=== PATIENT | female | born 1935 | race Caucasian/White ===

== ENCOUNTER → 2016-08-02 | Outpatient (CLI) | payer MEDICARE ==
--- OUTSIDE RECORDS SUMMARY | 2016-08-02 09:52 | XMS REPORT | Clinical Summary ---
Author Author Admin, E Organization [facility] Address Unknown Phone Unavailable Allergies, Adverse Reactions, Alerts Allergy Name Reaction Description Start Date Severity Status Provider No Known Allergies Faby Kennedy LPN NKDA Critical Active Saad WALDEN Conditions or Problems Problem Name Problem Code Onset Date Status Entry Date Provider Comment Standard Description Annotate DIABETES, TYPE 1 250.01 Correction Lizzy STEEL Diabetes mellitus without mention of complication, type I [juvenile type], not stated as uncontrolled HYPERLIPIDEMIA 272.4 Active Shubham Sanchez DO Other and unspecified hyperlipidemia HYPERTENSION 401.9 Active Shubham Sanchez DO Unspecified essential hypertension HYPOTHYROIDISM 244.9 Resolved Sissyeh Nancyari HOME SUPERVISOR Unspecified hypothyroidism FH DIABETES V18.0 Resolved Malmelissaeh Alexei STEEL Family history of diabetes mellitus HEALTH SCREENING V70.0 Active Shubham Sanchez DO Routine general medical examination at a health care facility DIABETES MELLITUS, TYPE II, UNCONTROLLED 250.02 Resolved Saad WALDEN Diabetes mellitus without mention of complication, type II or unspecified type, uncontrolled CARPAL TUNNEL SYNDROME, BILATERAL 354.0 Resolved Lizzy NAVARROP Carpal tunnel syndrome SINUSITIS, ACUTE 461.9 Resolved Saad WALDEN Acute sinusitis, unspecified FASCIITIS, PLANTAR 728.71 Resolved Saad WALDEN Plantar fascial fibromatosis DIABETES MELLITUS, TYPE II, CONTROLLED 250.00 Resolved Saad WALDEN Diabetes mellitus without mention of complication, type II or unspecified type, not stated as uncontrolled DIABETES, TYPE 2 250.00 Resolved aSad WALDEN Diabetes mellitus without mention of complication, type II or unspecified type, not stated as uncontrolled ARTHRITIS 716.90 Active Shubham Sanchez DO Arthropathy, unspecified, site unspecified DIABETES MELLITUS, TYPE II, ON INSULIN 250.00 Resolved Sissyeh Martyglari HOME SUPERVISOR Diabetes mellitus without mention of complication, type II or unspecified type, not stated as uncontrolled DIABETIC PERIPHERAL NEUROPATHY 250.60 Active Saad WALDEN Diabetes mellitus with neurological manifestations, type II or unspecified type, not stated as uncontrolled 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 Resolved Maliheh Ziglari HOME SUPERVISOR Benign neoplasm of parathyroid gland URINARY TRACT INFECTION 599.0 Resolved Sissyeh Martyglari HOME SUPERVISOR Urinary tract infection, site not specified LONG-TERM (CURRENT) USE OF OTHER MEDICATIONS V58.69 Resolved Sissyeh Ziglari HOME SUPERVISOR Long-term (current) use of other medications PARATHYROIDECTOMY V45.79 Resolved Jelaniiheh Ziglari HOME SUPERVISOR Other acquired absence of organ HAND PAIN, RIGHT 729.5 Resolved Sissyeh Martyglari HOME SUPERVISOR Pain in limb VITAMIN D DEFICIENCY 268.9 Active Saad WALDEN Unspecified vitamin D deficiency PRIMARY HYPERPARATHYROIDISM 252.01 Active Saad WALDEN Primary hyperparathyroidism NEED PROPHYLACTIC VACCINATION&INOCULATION FLU V04.81 Resolved Lizzy Fergusonglari HOME SUPERVISOR Need for prophylactic vaccination and inoculation against influenza Hypocalcemia 275.41 Active Saad WALDEN Hypocalcemia Leg cramps 729.82 Active Saad WALDEN Cramp of limb Diabetes mellitus, type II, uncontrolled 250.02 Active Saad WALDEN Diabetes mellitus without mention of complication, type II or unspecified type, uncontrolled Elevated blood sugar 790.29 Resolved Sissyeh Martyglmat NAVARROP Other abnormal glucose Anemia 285.9 Active Guillermina Bay [employer] Anemia, unspecified 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 Kalpesh Che MD 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 Renal Mass 593.9 Active Bobbi Sandoval MD Unspecified disorder of kidney and ureter Long-term (current) use of other medications V58.69 Resolved Maliheh Ziglari HOME SUPERVISOR Long-term (current) use of other medications Kidney disease, chronic, stage III 585.3 Active Vanessa Cantu RMA Chronic kidney disease, Stage III (moderate) Aftercare following surgery of the teeth,oral cavity and digestive system, NEC V58.75 Resolved Maliheh Ziglari HOME SUPERVISOR Aftercare following surgery of the teeth,oral cavity and digestive system, NEC Renal 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 Active Bobbi Sandoval MD Malignant neoplasm of kidney, except pelvis Fatigue 780.79 Active Saad WALDEN Other malaise and fatigue Hypotension 458.9 Active Saad WALDEN Hypotension, unspecified Adenocarcinoma, colon 153.9 Active Saad WALDEN Malignant neoplasm of colon, unspecified Allergic rhinitis 477.9 Resolved Maliheh Ziglari HOME SUPERVISOR Allergic rhinitis, cause unspecified Localized superficial swelling, mass, or lump 782.2 Resolved Maliheh Ziglari HOME SUPERVISOR Localized superficial swelling, mass, or lump Diabetes mellitus, type II, on insulin, controlled 250.00 Active Saad WALDEN Diabetes mellitus without mention of complication, type II or unspecified type, not stated as uncontrolled Hx of colon cancer V10.05 Resolved Maliheh Ziglari HOME SUPERVISOR Personal history of malignant neoplasm of large intestine NEED FOR PROPHYLACTIC VACCINATION AGAINST STREPTOCOCCUS PNEUMONIAE ( PNEUMOCOCCUS) V03.82 Resolved Maliheh Ziglari HOME SUPERVISOR Need for prophylactic vaccination against Streptococcus pneumoniae [ pneumococcus] Pharyngitis 462 Resolved Jelaniiheh Martyglari HOME SUPERVISOR Acute pharyngitis Diabetes mellitus, type II, uncontrolled 250.02 Active Jelaniiheh Martyglari HOME SUPERVISOR Diabetes mellitus without mention of complication, type II or unspecified type, uncontrolled Renal insufficiency, chronic 585.9 Active Jelaniiheh Martyglari HOME SUPERVISOR Chronic kidney disease, unspecified Menopause, surgical 627.4 Active Kenya Valle Symptomatic states associated with artificial menopause Knee pain, left 719.46 Active Saad WALDEN Pain in joint involving lower leg Osteoarthritis, knee, left 715.96 Active Saad WALDEN Osteoarthrosis, unspecified whether generalized or localized, involving lower leg FDC (current) use of insulin V58.67 Active Lizzy Fergusonglari HOME SUPERVISOR Long-term (current) use of insulin Abdominal pain, lower 789.09 Inactive Shubham Sanchez DO Abdominal pain, other specified site; multiple sites Insomnia 780.52 Active Harleen Pantoja RPT,RMA Insomnia, unspecified 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 Active Jelanimelissaeh Martyglari HOME SUPERVISOR Diabetes mellitus with renal manifestations, type II or unspecified type, not stated as uncontrolled Diabetes mellitus, type II, 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 Active Sissyeh Martyglari HOME SUPERVISOR Polyneuropathy in diabetes Dyspnea 786.09 Active Shubham Sanchez DO Other dyspnea and respiratory abnormality Fluid retention 276.6 Active Shubham Sanchez DO Fluid overload Chest pain, exertional 786.50 Active Shubham Sanchez DO Unspecified chest pain DIABETES, TYPE 1 ICD-250.01 Inactive Sissyeh Martyglari HOME SUPERVISOR HYPOTHYROIDISM ICD-244.9 Inactive Maliheh Alexei NAVARROP 2013 FH DIABETES ICD-V18.0 Inactive Maliheh Martyglari HOME SUPERVISOR DIABETES MELLITUS, TYPE II, UNCONTROLLED ICD-250.02 Inactive Saad WALDEN CARPAL TUNNEL SYNDROME, BILATERAL ICD-354.0 Inactive Mallobo NAVARROP SINUSITIS, ACUTE ICD-461.9 Inactive Saad WALDEN FASCIITIS, PLANTAR ICD-728.71 Inactive Saad WALDEN DIABETES MELLITUS, TYPE II, CONTROLLED ICD-250.00 Inactive Saad WALDEN DIABETES, TYPE 2 ICD-250.00 Inactive Saad WALDEN DIABETES MELLITUS, TYPE II, ON INSULIN ICD-250.00 Inactive Malmelissaeh Martyglari HOME SUPERVISOR BENIGN NEOPLASM OF PARATHYROID GLAND ICD-227.1 Inactive Maliheh Martyglari HOME SUPERVISOR URINARY TRACT INFECTION ICD-599.0 Inactive Mallobo Fergusonglari HOME SUPERVISOR LONG-TERM (CURRENT) USE OF OTHER MEDICATIONS ICD-V58.69 Inactive Maliheh Martyglari HOME SUPERVISOR PARATHYROIDECTOMY ICD-V45.79 Inactive Maliheh Ziglari HOME SUPERVISOR HAND PAIN, RIGHT ICD-729.5 Inactive Maliheh Ziglari HOME SUPERVISOR NEED PROPHYLACTIC VACCINATION&INOCULATION FLU ICD-V04.81 Inactive Maliheh Ziglari HOME SUPERVISOR Elevated blood sugar ICD-790.29 Inactive Maliheh Martyglari HOME SUPERVISOR Long-term (current) use of other medications ICD-V58.69 Inactive Lizzy Fergusonglari HOME SUPERVISOR Aftercare following surgery of the teeth,oral cavity and digestive system, NEC ICD-V58.75 Inactive Jelaniihmarcel Fergusonglari HOME SUPERVISOR Allergic rhinitis ICD-477.9 Inactive Jelaniiheh Martyglari HOME SUPERVISOR Localized superficial swelling, mass, or lump ICD-782.2 Inactive Jelaniiheh Ziglari HOME SUPERVISOR Hx of colon cancer ICD-V10.05 Inactive Jelaniihmarcel Ziglari HOME SUPERVISOR NEED FOR PROPHYLACTIC VACCINATION AGAINST STREPTOCOCCUS PNEUMONIAE ( PNEUMOCOCCUS) ICD-V03.82 Inactive Lizzy Fergusonglari HOME SUPERVISOR Pharyngitis ICD-462 Inactive Lizzy Fergusonglari HOME SUPERVISOR Abdominal pain, lower ICD-789.09 Inactive Shubham Sanchez DO Medication List Medication Instructions Start Date Stop Date Generic Name NDC Status Provider Patient Instruction NOVOLIN N RELION 100 UNIT/ML SUSP take 80 units every tre, 20u every am 09/07 INSULIN ISOPHANE HUMAN 11907810604 Active Sissyeh Ziglari HOME SUPERVISOR Active DAILY VALUE MULTIVITAMIN ORAL TABS Take one by mouth daily MULTIPLE VITAMIN 73167601862 Active Maliheh Ziglari HOME SUPERVISOR Active HYOSCYAMINE SULFATE 0.125 MG ORAL TABS 1 tablet every 4 hours p.r.n. belly pain/spasm HYOSCYAMINE SULFATE 27812711105 No Longer Active Maliheh Ziglari HOME SUPERVISOR Active LEVEMIR FLEXPEN 100 UNIT/ML SOLN 100 units SC at bedtime INSULIN DETEMIR Active Maliheh Ziglari HOME SUPERVISOR Active HUMALOG 100 UNIT/ML SC SOCT Take 40units with breakfast and lunch and 50u with supper. INSULIN LISPRO (HUMAN) 67370256088 Active Jelanimelissamarcel Martyglmat NAVARROP Active AMBIEN 10 MG TABS 1/2 tab at hs ZOLPIDEM TARTRATE 80505662818 No Longer Active Shubham Sanchez DO Active ATENOLOL 50 MG TABS 1/2 tab daily ATENOLOL 26926334718 No Longer Active Shubham Sanchez DO Active MIACALCIN 200 UNIT/ACT NASAL SOLN 1 squirt daily, alternating nostrils qod CALCITONIN (SALMON) 18777537609 No Longer Active Shubham Sanchez DO Active NOVOLIN N RELION 100 UNIT/ML SUSP Take 50 units @ 10pm INSULIN ISOPHANE HUMAN 45775475812 No Longer Active Shubham Sanchez DO Active NOVOLOG 100 UNIT/ML SC SOLN as directed with meals. ( use in place of humalog ) INSULIN ASPART 48846444589 No Longer Active Shubham Sanchez DO Active NOVOLOG 100 UNIT/ML SC SOLN Take 20 units before meals and at bedtime if sugar above 150 INSULIN ASPART 18669778088 No Longer Active Shubham Sanchez DO Active VITAMIN D (ERGOCALCIFEROL) 84016 UNIT ORAL CAPS One capsule monthly. ERGOCALCIFEROL 43763879812 Active Saad WALDEN Active FLONASE 50 MCG/ACT SUSP 1 spray each nostril am and hs FLUTICASONE PROPIONATE 13561426456 No Longer Active Lizzy STEEL Active AMBIEN 5 MG TAB 1 po qHS PRN Insomnia ZOLPIDEM TARTRATE 71466771366 Active Bess Iyer LPN Active ATENOLOL 25 MG TABS 1 tablet by mouth daily ATENOLOL 68765767929 Active Saad WALDEN Active AMLODIPINE BESYLATE 5 MG TABS 1 tablet by mouth daily AMLODIPINE BESYLATE 95933173907 Active Saad WALDEN Active AMLODIPINE BESYLATE 10 MG TABS 1/2 tab daily AMLODIPINE BESYLATE 38866484113 No Longer Active Saad WALDEN Active LANTUS 100 UNIT/ML SC SOLN Takes 100 units before bedtime INSULIN GLARGINE 33215724563 No Longer Active Maliheh Ziglari HOME SUPERVISOR Active LASIX 20 MG TABS Take 1 tablet daily FUROSEMIDE 25745481584 Active Harleen Pantoja RPT,RMA Active HUMALOG 100 UNIT/ML SOLN take 30 units with each meal +sliding scale. 3u/50 for blood sugars above 150 INSULIN LISPRO (HUMAN) 14794182083 No Longer Active Kalpesh Che MD Active ZITHROMAX Z-CATHY 250 MG TABS 2 today and then 1 daily for 4 days AZITHROMYCIN 26709497078 No Longer Active Maliheh Ziglari HOME SUPERVISOR Active LEVEMIR 100 UNIT/ML SOLN 100 units at bedtime, in 2 doses of 50 units. 07/08 INSULIN DETEMIR 35364843732 No Longer Active Maliheh Ziglari HOME SUPERVISOR Active LASIX 20 MG TABS Take one daily FUROSEMIDE 43640125466 No Longer Active Maliheh Ziglari HOME SUPERVISOR Active METFORMIN HCL 500 MG TB24 1 po BID METFORMIN HCL 89718787401 No Longer Active Maliheh Ziglari HOME SUPERVISOR Active HUMALOG KWIKPEN 100 UNIT/ML SOPN take 30u with each meal INSULIN LISPRO (HUMAN) 20371787375 No Longer Active Saad WALDEN Active [facility] CALCIUM 600+D 600-800 MG-UNIT TABS 4 daily CALCIUM CARB- CHOLECALCIFEROL 87115568448 Active Saad WALDEN Active LEVOTHYROXINE SODIUM 125 MCG TABS 1 qd LEVOTHYROXINE SODIUM 94182347329 Active Saad WALDEN Active SIMVASTATIN 80 MG TABS 1/2 tab daily SIMVASTATIN 40061678991 Active Risa Meraz MA Active ALEVE 220 MG CAPS 2qd NAPROXEN SODIUM 25545693502 Active Saad WALDEN Active MIRALAX POWD 3-4 times a week POLYETHYLENE GLYCOL 3350 28720758084 No Longer Active Maliheh Ziglari HOME SUPERVISOR Active LEVEMIR 100 UNIT/ML SOLN 30 units in evening INSULIN DETEMIR 06720686378 No Longer Active Maliheh Ziglari HOME SUPERVISOR Active PROMETHAZINE HCL 25 MG SUPP one per rectum every 12 hours as needed for nausea PROMETHAZINE HCL 17528857942 No Longer Active Kalpesh Che MD Active LANTUS SOLOSTAR 100 UNIT/ML SOLN take 60u daily in place of [facility] INSULIN GLARGINE 47465581912 No Longer Active Maliheh Ziglari HOME SUPERVISOR Active ALEVE 220 MG CAPS 2qd NAPROXEN SODIUM 04779327224 No Longer Active Maliheh Ziglari HOME SUPERVISOR Active IFEREX 150 CAPS by mouth twice a day POLYSACCHARIDE IRON COMPLEX CAPS 66517777882 No Longer Active Maliheh Ziglari HOME SUPERVISOR Active GLUCOPHAGE XR 500 MG [id number] 1 po every evening with supper METFORMIN HCL 03667271204 No Longer Active Saad Harms PA Active TRAMADOL HCL 50 MG TABS 2 po q hs for pain prn TRAMADOL HCL 07122668725 No Longer Active Saad Harms PA Active IFEREX 150 150 MG CAPS one po bid POLYSACCHARIDE IRON COMPLEX 32785408169 No Longer Active Maliheh Ziglari HOME SUPERVISOR Active HUMALOG KWIKPEN 100 UNIT/ML SOLN as directed INSULIN LISPRO (HUMAN) 89274960248 No Longer Active Maliheh Ziglari HOME SUPERVISOR Active VITAMIN D3 18699 UNIT CAPS 1 tablet monthly for vitamin D deficiency CHOLECALCIFEROL 32721115673 No Longer Active Saad Harms PA Active LISINOPRIL 10 MG TABS 1 tab po q day LISINOPRIL 69607326769 No Longer Active Saad Harms PA Active SIMVASTATIN 80 MG TABS 1/2 tab every hs SIMVASTATIN 50658112280 No Longer Active Saad Harms PA Active PROMETHAZINE HCL 25 MG SUPP 1 supp rectally every 6hrs prn n/v PROMETHAZINE HCL 94190516891 No Longer Active Saad Harms PA Active CALCIUM 600 MG TABS 5-8 tab daily CALCIUM 25263174928 No Longer Active Saad Harms PA Active ZOFRAN 4 MG TABS 1 q 6 hrs prn nausea ONDANSETRON HCL 93602841444 No Longer Active Lizzy Linda HOME SUPERVISOR Active CYCLOBENZAPRINE HCL 10 MG TABS 1 tablet by mouth three times daily as needed for muscle spasm/pain CYCLOBENZAPRINE HCL 83868891546 Active Harleen Pantoja RPT,RMA Active OMEPRAZOLE 20 MG TBEC 1qd OMEPRAZOLE 13564663550 Active Saad Harms PA Active NOVOLOG 100 UNIT/ML SOLN 20u with each meal+ sliding scale 03/05 INSULIN ASPART 44290421500 No Longer Active Saad Harms PA Active LANTUS 100 UNIT/ML SOLN 70-80units at hs INSULIN GLARGINE 30105220830 No Longer Active Saad Harms PA Active VITAMIN D3 5000 UNIT CAPS 2 caps a week CHOLECALCIFEROL 59979381425 No Longer Active Saad Harms PA Active ZOFRAN ODT 4 MG TBDP 1 po q6hr PRN Nausea ONDANSETRON 80753116828 No Longer Active Saad Harms PA Active LEVEMIR 100 UNIT/ML SOLN 80 units daily INSULIN DETEMIR 82394864690 No Longer Active Saad Harms PA Active LANTUS 100 UNIT/ML SOLN 70- 80 units sq every HS INSULIN GLARGINE 22347507460 No Longer Active Lizzy Cruzari HOME SUPERVISOR Active NOVOLOG FLEXPEN 100 UNIT/ML SOLN 20u three times daily with meals INSULIN ASPART 25858562272 No Longer Active Mallobo Ziglari HOME SUPERVISOR Active HUMALOG KWIKPEN 100 UNIT/ML SOLN 20 units with each meal INSULIN LISPRO (HUMAN) 66585660092 No Longer Active Maliheh Ziglari HOME SUPERVISOR Active LEVEMIR 100 UNIT/ML SOLN 70 to 80 units SQ daily INSULIN DETEMIR 14838543253 No Longer Active Maliheh Ziglari HOME SUPERVISOR Active VICTOZA 18 MG/3ML SOLN Victoza 0.6 mg subcutaneous q. day. 07/26 LIRAGLUTIDE 42793356859 No Longer Active Maliheh Ziglari HOME SUPERVISOR Active APIDRA SOLOSTAR 100 UNIT/ML SC SOLN ( may use in place of humalog) 20u sq three times daily INSULIN GLULISINE 35095964001 No Longer Active Maliheh Ziglari HOME SUPERVISOR Active HUMALOG 100 UNIT/ML SOLN 20 u with each meal daily INSULIN LISPRO (HUMAN) 71549632370 No Longer Active Maliheh Ziglari HOME SUPERVISOR Active COLACE 100 MG CAPS 1 po daily as needed DOCUSATE SODIUM 93174815223 No Longer Active Malmelissaeh Ziglari HOME SUPERVISOR Active AMOXICILLIN 500 MG CAPS 2 po BID x 10 days AMOXICILLIN 13550151784 No Longer Active Steffany Mendez MD PhD Active VITAMIN D (ERGOCALCIFEROL) 22043 UNIT CAPS 1 po q week ERGOCALCIFEROL 86177045218 No Longer Active Steffany Mendez MD PhD Active VITAMIN D (ERGOCALCIFEROL) 44304 UNIT CAPS 1 po q week VITAMIN D (ERGOCALCIFEROL) 70737 UNIT CAPS 0297243 ERGOCALCIFEROL Inactive COLACE 100 MG CAPS 1 po daily as needed COLACE 100 MG CAPS 5204123 DOCUSATE SODIUM Inactive HUMALOG 100 UNIT/ML SOLN 20 u with each meal daily HUMALOG 100 UNIT/ML SOLN INSULIN LISPRO (HUMAN) Inactive APIDRA SOLOSTAR 100 UNIT/ML SC SOLN ( may use in place of humalog) 20u sq three times daily APIDRA SOLOSTAR 100 UNIT/ML SC SOLN INSULIN GLULISINE Inactive VICTOZA 18 MG/3ML SOLN Victoza 0.6 mg subcutaneous q. day. 07/26 VICTOZA 18 MG/3ML SOLN LIRAGLUTIDE Inactive LEVEMIR 100 UNIT/ML SOLN 70 to 80 units SQ daily LEVEMIR 100 UNIT/ML SOLN INSULIN DETEMIR Inactive HUMALOG KWIKPEN 100 UNIT/ML SOLN 20 units with each meal HUMALOG KWIKPEN 100 UNIT/ML SOLN INSULIN LISPRO (HUMAN) Inactive NOVOLOG FLEXPEN 100 UNIT/ML SOLN 20u three times daily with meals NOVOLOG FLEXPEN 100 UNIT/ML SOLN INSULIN ASPART Inactive LANTUS 100 UNIT/ML SOLN 70- 80 units sq every HS LANTUS 100 UNIT/ML SOLN INSULIN GLARGINE Inactive LEVEMIR 100 UNIT/ML SOLN 80 units daily LEVEMIR 100 UNIT/ML SOLN INSULIN DETEMIR Inactive ZOFRAN ODT 4 MG TBDP 1 po q6hr PRN Nausea ZOFRAN ODT 4 MG TBDP 539500 ONDANSETRON Inactive VITAMIN D3 5000 UNIT CAPS 2 caps a week VITAMIN D3 5000 UNIT CAPS CHOLECALCIFEROL Inactive LANTUS 100 UNIT/ML SOLN 70-80units at hs LANTUS 100 UNIT/ML SOLN INSULIN GLARGINE Inactive NOVOLOG 100 UNIT/ML SOLN 20u with each meal+ sliding scale 03/05 NOVOLOG 100 UNIT/ML SOLN INSULIN ASPART Inactive ZOFRAN 4 MG TABS 1 q 6 hrs prn nausea ZOFRAN 4 MG TABS 976752 ONDANSETRON HCL Inactive PROMETHAZINE HCL 25 MG SUPP 1 supp rectally every 6hrs prn n/v PROMETHAZINE HCL 25 MG SUPP 088492 PROMETHAZINE HCL Inactive SIMVASTATIN 80 MG TABS 1/2 tab every hs SIMVASTATIN 80 MG TABS 876720 SIMVASTATIN Inactive LISINOPRIL 10 MG TABS 1 tab po q day LISINOPRIL 10 MG TABS 494561 LISINOPRIL Inactive VITAMIN D3 32250 UNIT CAPS 1 tablet monthly for vitamin D deficiency VITAMIN D3 53029 UNIT CAPS CHOLECALCIFEROL Inactive HUMALOG KWIKPEN 100 UNIT/ML SOLN as directed HUMALOG KWIKPEN 100 UNIT/ML SOLN INSULIN LISPRO (HUMAN) Inactive IFEREX 150 150 MG CAPS one po bid IFEREX 150 150 MG CAPS POLYSACCHARIDE IRON COMPLEX Inactive TRAMADOL HCL 50 MG TABS 2 po q hs for pain prn TRAMADOL HCL 50 MG TABS 556675 TRAMADOL HCL Inactive GLUCOPHAGE XR 500 MG [id number] 1 po every evening with supper GLUCOPHAGE XR 500 MG [id number] METFORMIN HCL Inactive IFEREX 150 CAPS by mouth twice a day IFEREX 150 CAPS POLYSACCHARIDE IRON COMPLEX CAPS Inactive ALEVE 220 MG CAPS 2qd ALEVE 220 MG CAPS 2231890 NAPROXEN SODIUM Inactive LEVEMIR 100 UNIT/ML SOLN 30 units in evening LEVEMIR 100 UNIT/ML SOLN INSULIN DETEMIR Inactive MIRALAX POWD 3-4 times a week MIRALAX POWD 728913 POLYETHYLENE GLYCOL 3350 Inactive HUMALOG KWIKPEN 100 UNIT/ML SOPN take 30u with each meal HUMALOG KWIKPEN 100 UNIT/ML SOPN INSULIN LISPRO (HUMAN) Inactive METFORMIN HCL 500 MG TB24 1 po BID METFORMIN HCL 500 MG TB24 METFORMIN HCL Inactive LASIX 20 MG TABS Take one daily LASIX 20 MG TABS 867722 FUROSEMIDE Inactive LEVEMIR 100 UNIT/ML SOLN 100 units at bedtime, in 2 doses of 50 units. 07/08 LEVEMIR 100 UNIT/ML SOLN INSULIN DETEMIR Inactive ZITHROMAX Z-CATHY 250 MG TABS 2 today and then 1 daily for 4 days ZITHROMAX Z-CATHY 250 MG TABS 1927871 AZITHROMYCIN Inactive HUMALOG 100 UNIT/ML SOLN take 30 units with each meal +sliding scale. 3u/50 for blood sugars above 150 HUMALOG 100 UNIT/ML SOLN INSULIN LISPRO (HUMAN) Inactive LANTUS 100 UNIT/ML SC SOLN Takes 100 units before bedtime LANTUS 100 UNIT/ML SC SOLN INSULIN GLARGINE Inactive AMLODIPINE BESYLATE 10 MG TABS 1/2 tab daily AMLODIPINE BESYLATE 10 MG TABS 289325 AMLODIPINE BESYLATE Inactive FLONASE 50 MCG/ACT SUSP 1 spray each nostril am and hs FLONASE 50 MCG/ACT SUSP FLUTICASONE PROPIONATE Inactive NOVOLOG 100 UNIT/ML SC SOLN Take 20 units before meals and at bedtime if sugar above 150 NOVOLOG 100 UNIT/ML SC SOLN INSULIN ASPART Inactive NOVOLOG 100 UNIT/ML SC SOLN as directed with meals. ( use in place of humalog ) NOVOLOG 100 UNIT/ML SC SOLN INSULIN ASPART Inactive NOVOLIN N RELION 100 UNIT/ML SUSP Take 50 units @ 10pm NOVOLIN N RELION 100 UNIT/ML SUSP INSULIN ISOPHANE HUMAN Inactive MIACALCIN 200 UNIT/ACT NASAL SOLN 1 squirt daily, alternating nostrils qod MIACALCIN 200 UNIT/ACT NASAL SOLN 636571 CALCITONIN (SALMON) Inactive ATENOLOL 50 MG TABS 1/2 tab daily ATENOLOL 50 MG TABS 690961 ATENOLOL Inactive AMBIEN 10 MG TABS 1/2 tab at hs AMBIEN 10 MG TABS 502736 ZOLPIDEM TARTRATE Inactive HYOSCYAMINE SULFATE 0.125 MG ORAL TABS 1 tablet every 4 hours p.r.n. belly pain/spasm HYOSCYAMINE SULFATE 0.125 MG ORAL TABS 5301372 HYOSCYAMINE SULFATE Inactive AMOXICILLIN 500 MG CAPS 2 po BID x 10 days AMOXICILLIN 500 MG CAPS 709368 AMOXICILLIN Inactive PROMETHAZINE HCL 25 MG SUPP one per rectum every 12 hours as needed for nausea PROMETHAZINE HCL 25 MG SUPP 237203 PROMETHAZINE HCL Inactive Immunizations Vaccine Administration Date Value Standard Description pneumococcal immunization administered 09/09/2014 pneumococcal polysaccharide vaccine, 23 valent influenza immunization (Flu Vax) has been administered 04/23/2015 influenza virus vaccine, unspecified formulation influenza immunization (Flu Vax) has been administered 04/25/2014 influenza virus vaccine, unspecified formulation influenza immunization (Flu Vax) has been administered 04/19/2013 influenza virus vaccine, unspecified formulation pneumococcal immunization administered 04/23/2002 pneumococcal polysaccharide vaccine, 23 valent influenza immunization (Flu Vax) has been administered 04/25/2012 influenza virus vaccine, unspecified formulation influenza immunization (Flu Vax) has been administered 04/25/2011 influenza virus vaccine, unspecified formulation Pneumococcal vaccine 04/2002 pneumococcal vaccine, unspecified formulation Vital Signs Date Name Value Unit Range Description blood pressure, diastolic - 8462-4 61 mm[Hg] BP arriaza blood pressure, systolic - 8480-6 141 mm[Hg] BP sys pulse rate E&M - 8867-4 58 /min Heart rate temperature E&M 97.9 [degF] Body temperature weight E&M - 3141-9 212.5 [lb_av] Weight Measured blood pressure, diastolic - 8462-4 70 mm[Hg] BP arriaza blood pressure, systolic - 8480-6 122 mm[Hg] BP sys pulse rate E&M - 8867-4 72 /min Heart rate weight E&M - 3141-9 206 [lb_av] Weight Measured blood pressure, diastolic - 8462-4 80 mm[Hg] BP arriaza blood pressure, systolic - 8480-6 142 mm[Hg] BP sys height E&M - 8302-2 63 [in_us] Bdy height pulse rate E&M - 8867-4 84 /min Heart rate weight E&M - 3141-9 208 [lb_av] Weight Measured blood pressure, diastolic - 8462-4 84 mm[Hg] BP arriaza blood pressure, systolic - 8480-6 149 mm[Hg] BP sys pulse rate E&M - 8867-4 77 /min Heart rate temperature E&M 98.6 [degF] Body temperature weight E&M - 3141-9 207.4 [lb_av] Weight Measured blood pressure, diastolic - 8462-4 80 mm[Hg] BP arriaza blood pressure, systolic - 8480-6 130 mm[Hg] BP sys pulse rate E&M - 8867-4 60 /min Heart rate weight E&M - 3141-9 207 [lb_av] Weight Measured blood pressure, diastolic - 8462-4 68 mm[Hg] BP arriaza blood pressure, systolic - 8480-6 124 mm[Hg] BP sys pulse rate E&M - 8867-4 56 /min Heart rate temperature E&M 97.7 [degF] Body temperature weight E&M - 3141-9 202.5 [lb_av] Weight Measured blood pressure, diastolic - 8462-4 77 mm[Hg] BP arriaza blood pressure, systolic - 8480-6 139 mm[Hg] BP sys pulse rate E&M - 8867-4 68 /min Heart rate temperature E&M 97.8 [degF] Body temperature weight E&M - 3141-9 201.5 [lb_av] Weight Measured blood pressure, diastolic - 8462-4 70 mm[Hg] BP arriaza blood pressure, systolic - 8480-6 128 mm[Hg] BP sys pulse rate E&M - 8867-4 72 /min Heart rate weight E&M - 3141-9 200 [lb_av] Weight Measured blood pressure, diastolic - 8462-4 73 mm[Hg] BP arriaza blood pressure, systolic - 8480-6 113 mm[Hg] BP sys pulse rate E&M - 8867-4 71 /min Heart rate temperature E&M 98.4 [degF] Body temperature weight E&M - 3141-9 201.2 [lb_av] Weight Measured Diagnostic Results Date Name Value Unit Range Description Chart Maintenance: Outside labs entered on [employer] - Chemistry sodium, serum 140 mmol/L potassium, serum 4.4 mmol/L blood glucose 157 mg/dL creatinine, serum 2.05 mg/dL Chart Maintenance: Outside labs entered on [employer] - Hematology leukocyte count, blood 6.9 10*3/mm3 hemoglobin, blood 11.7 g/dL platelet count 165 10*3/mm3 Lab Report: Basic Metabolic Panel - Chemistry sodium, serum 139 mmol/L 821-416 2880/01/08 potassium, serum 3.9 mmol/L 3.5-5.2 chloride, serum 101 mmol/L 98-107 carbon dioxide, venous blood 25.9 mmol/L 21.0-32.0 blood glucose 177 mg/dL 65-110 calcium, serum 8.9 mg/dL 8.5-10.1 urea nitrogen, blood 41 mg/dL 7-18 creatinine, serum 2.40 mg/dL 0.55-1.30 Lab Report: CBC W/DIFF, Comp. Metabolic Panel - Chemistry sodium, serum 137 mmol/L 753-611 2064/01/05 carbon dioxide, venous blood 23.9 mmol/L 21.0-32.0 potassium, serum 5.1 mmol/L 3.5-5.2 chloride, serum 100 mmol/L 98-107 blood glucose 248 mg/dL 65-110 urea nitrogen, blood 33 mg/dL 7-18 creatinine, serum 2.30 mg/dL 0.55-1.30 alanine aminotransferase (SGPT), serum 48 U/L 12-78 aspartate aminotransferase (SGOT), serum 48 U/L 15-37 calcium, serum 8.8 mg/dL 8.5-10.1 bilirubin, serum, total 0.70 mg/dL 0.00-1.00 sodium, serum 139 mmol/L 874-049 6642/06/12 potassium, serum 4.5 mmol/L 3.5-5.2 chloride, serum 102 mmol/L 98-107 carbon dioxide, venous blood 24.9 mmol/L 21.0-32.0 blood glucose 224 mg/dL 65-110 urea nitrogen, blood 35 mg/dL 7-18 creatinine, serum 2.00 mg/dL 0.60-1.30 alanine aminotransferase (SGPT), serum 28 U/L -78 aspartate aminotransferase (SGOT), serum 28 U/L 15-37 calcium, serum 7.8 mg/dL 8.5-10.1 bilirubin, serum, total 0.50 mg/dL 0.00-1.00 Lab Report: CBC W/DIFF, Comp. Metabolic Panel - Hematology leukocyte count, blood 7.2 10^3/MM^3 10*3/mm3 4.6-10.2 neutrophils as percent of blood leukocytes 57.9 % 42.2-75.2 monocytes as percent of blood leukocytes 8.3 % 1.7-9.3 lymphocytes as percent of blood leukocytes 30.9 % 20.5-51.1 erythrocyte (RBC) count 3.71 10^6/MM^3 10*6/mm3 4.04-5.48 hemoglobin, blood 11.5 g/dL 12.0-16.0 hematocrit, blood 34.8 % 36.0-46.0 mean corpuscular volume, RBC 94 fL 80-97 mean corpuscular hemoglobin, RBC 31.1 pg 27.0-31.2 mean corpuscular hemoglobin concentration, RBC 33.1 G/DL % 31.8- 35.4 red blood cell distribution width 14.7 % 11.6-14.8 platelet count 174 10^3/MM^3 10*3/mm3 001-486 7845/01/05 leukocyte count, blood 6.9 10^3/MM^3 10*3/mm3 4.6-10.2 neutrophils as percent of blood leukocytes 57.5 % 42.2-75.2 monocytes as percent of blood leukocytes 8.8 % 1.7-9.3 lymphocytes as percent of blood leukocytes 28.7 % 20.5-51.1 erythrocyte (RBC) count 3.82 10^6/MM^3 10*6/mm3 4.04-5.48 hemoglobin, blood 12.3 g/dL 12.0-16.0 hematocrit, blood 37.5 % 36.0-46.0 mean corpuscular volume, RBC 98 fL 80-97 mean corpuscular hemoglobin, RBC 32.1 pg 27.0-31.2 mean corpuscular hemoglobin concentration, RBC 32.7 G/DL % 31.8- 35.4 red blood cell distribution width 15.4 % 11.6-14.8 platelet count 189 10^3/MM^3 10*3/mm3 142-424 Lab Report: CBC W/DIFF, Comp. Metabolic Panel, Direct Bilirubin - Chemistry sodium, serum 139 mmol/L 401-503 0334/07/28 potassium, serum 4.6 mmol/L 3.5-5.2 chloride, serum 101 mmol/L 98-107 carbon dioxide, venous blood 25.2 mmol/L 21.0-32.0 blood glucose 231 mg/dL 65-110 urea nitrogen, blood 35 mg/dL 7-18 creatinine, serum 2.20 mg/dL 0.60-1.30 alanine aminotransferase (SGPT), serum 28 U/L 12-78 aspartate aminotransferase (SGOT), serum 26 U/L 15-37 calcium, serum 7.9 mg/dL 8.5-10.1 bilirubin, serum, total 0.50 mg/dL 0.00-1.00 Lab Report: CBC W/DIFF, Comp. Metabolic Panel, Direct Bilirubin - Hematology leukocyte count, blood 7.6 10^3/MM^3 10*3/mm3 4.6-10.2 neutrophils as percent of blood leukocytes 59.8 % 42.2-75.2 monocytes as percent of blood leukocytes 7.7 % 1.7-9.3 lymphocytes as percent of blood leukocytes 29.6 % 20.5-51.1 erythrocyte (RBC) count 3.70 10^6/MM^3 10*6/mm3 4.04-5.48 hemoglobin, blood 11.6 g/dL 12.0-16.0 hematocrit, blood 34.6 % 36.0-46.0 mean corpuscular volume, RBC 93 fL 80-97 mean corpuscular hemoglobin, RBC 31.4 pg 27.0-31.2 mean corpuscular hemoglobin concentration, RBC 33.6 G/DL % 31.8- 35.4 red blood cell distribution width 14.4 % 11.6-14.8 platelet count 190 10^3/MM^3 10*3/mm3 142-424 Lab Report: CEA - Serology carcinoembryonic antigen 1.3 ng/mL carcinoembryonic antigen 1.7 ng/mL Lab Report: HGBA1C - Chemistry hemoglobin A1C, blood, as % of total hemoglobin 7.7 % 4.3-6.0 hemoglobin A1C, blood, as % of total hemoglobin 7.5 % 4.3-6.0 hemoglobin A1C, blood, as % of total hemoglobin 7.6 % 4.3-6.0 Lab Report: Lipid Panel - Chemistry cholesterol, serum 140 mg/dL 047-685 0184/03/22 triglyceride, serum, fasting 220 mg/dL 30-200 HDL cholesterol, serum 45 mg/dL 32-96 LDL cholesterol, serum 51 mg/dL 0-130 Lab Report: MICROALBUMIN - Chemistry albumin/creatinine ratio, urine 30 - 300 mg/g mg/g{creat} 0-29 Lab Report: MICROALBUMIN - Lab microalbumin, urine 10 0-19 Lab Report: VITAMIN D, 25-HYDROXY/04332 - Chemistry vitamin D 25-hydroxy, serum 67 ng/mL 30-100 Office Visit: Diabetes Visit - Chemistry cholesterol, target level 200 mg/dL triglyceride, target level 200 mg/dL HDL cholesterol, serum, target level 35 mg/dL LDL target level 100 mg/dL cholesterol, target level 200 mg/dL triglyceride, target level 200 mg/dL HDL cholesterol, serum, target level 35 mg/dL LDL target level 100 mg/dL cholesterol, target level 200 mg/dL triglyceride, target level 200 mg/dL HDL cholesterol, serum, target level 35 mg/dL LDL target level 100 mg/dL cholesterol, target level 200 mg/dL triglyceride, target level 200 mg/dL HDL cholesterol, serum, target level 35 mg/dL LDL target level 100 mg/dL Office Visit: Left knee pain-injection - Chemistry cholesterol, target level 200 mg/dL triglyceride, target level 200 mg/dL HDL cholesterol, serum, target level 35 mg/dL LDL target level 100 mg/dL Encounters Code Encounter Date Provider Facility CPT-80033 Level 4 Est. Patient 10:16:47 CDT Shubham Sanchez [facility] CPT-22214 Level 4 Est. Patient 09:55:57 HOME ENERGY AUDITOR [facility] CPT-54094 Level 4 Est. Patient 14:18:55 HOME ENERGY AUDITOR [facility] CPT-84324 Level 4 Est. Patient 10:16:59 HOME ENERGY AUDITOR Shubham Sanchez [facility] CPT-37880 Level 4 Est. Patient 15:30:04 CDT [facility] CPT-19307 Level 3 Est. Patient 15:01:44 CDT [facility] CPT-72444 Level 4 Est. Patient 08:14:26 CDT Saad WALDEN [facility] CPT-96193 Level 3 Est. Patient 14:45:46 CDT [facility] CPT-93456 Level 2 Est. Patient 13:44:33 CDT Kalpesh Che MD [facility] CPT-73503 Level 4 Est. Patient 09:44:06 CDT Saad WALDEN [facility] CPT-91849 Level 3 Est. Patient 15:14:03 CDT [facility] CPT-09752 Level 3 Est. Patient 10:43:12 HOME ENERGY AUDITOR Vinicius Arteaga MD [facility] CPT-56892 Level 4 Est. Patient 09:33:07 HOME ENERGY AUDITOR Saad WALDEN [facility] CPT-80703 Level 3 Est. Patient 18:06:38 HOME ENERGY AUDITOR Lizzy Linda [facility] CPT-07343 Level 4 Est. Patient 12:54:59 HOME ENERGY AUDITOR Saad WALDEN [facility] CPT-66946 Level 4 Est. Patient 09:29:13 CDT Saad WALDEN [facility] CPT-94667 Level 3 Est. Patient 10:10:09 CDT Shubham Sanchez DO [facility] CPT-41395 Level 3 Est. [facility] 14:25:54 [facility] Level 4 Est. Patient 14:50:05 CDT Saad WALDEN [facility] CPT-25544 Level 3 Est. Patient 15:26:56 [facility] Level 4 New Patient 14:32:39 CDT Bobbi Sandoval MD [facility] CPT-96942 Level 3 Est. Patient 16:46:37 CDT Kalpesh Che MD [facility] CPT-98759 Level 3 Est. Patient 15:01:37 CDT Jelanimelissamarcel Alexei [facility] CPT-96185 Level 4 Est. Patient 11:35:11 CDT Saad WALDEN [facility] CPT-43232 Level 3 Est. Patient 17:11:01 CDT Lizzy Linda [facility] CPT-09797 Level 4 Est. Patient 19:15:17 HOME ENERGY AUDITOR Jelanimarcel Linda [facility] CPT-88916 Level 4 Est. Patient 19:14:47 HOME ENERGY AUDITOR Lizzy Linda [facility] CPT-88316 Level 4 Est. Patient 08:12:45 HOME ENERGY AUDITOR Saad WALDEN [facility] CPT-53719 Level 3 Est. Patient 09:03:12 HOME ENERGY AUDITOR Saad WALDEN [facility] CPT-80279 Level 3 Est. Patient 10:36:26 HOME ENERGY AUDITOR Saad WALDEN [facility] CPT-73632 Level 3 Est. Patient 10:44:12 HOME ENERGY AUDITOR Lizzy Linda [facility] CPT-88098 Level 3 Est. Patient 13:43:23 CDT Saad WALDEN [facility] CPT-71230 Level 3 Est. Patient 10:44:10 CDT Saad [facility] CPT-25124 Level 3 Est. Patient 09:26:05 CDT Lizzy Linda [facility] CPT-17822 Level 4 Est. Patient 11:32:07 CDT Saad WALDEN [facility] CPT-89924 Level 3 Est. Patient 07:05:12 CDT Saad WALDEN [facility] CPT-29253 Level 4 Est. Patient 11:00:17 CDT Saad [facility] CPT-65964 Level 3 Est. Patient 09:22:31 HOME ENERGY AUDITOR Lizzy Linda [facility] CPT-06339 Level 3 Est. Patient 14:42:54 CDT Shubham Sanchez DO [facility] CPT-87157 Level 3 Est. Patient 09:22:19 CDT Lizzy Linda [facility] CPT-89683 Level 3 Est. Patient 06:05:35 CDT Shubham Sanchez [facility] CPT-38782 Level 3 Est. Patient 11:46:45 HOME ENERGY AUDITOR Steffany Mendez MD PhD [facility] CPT-53899 Level 3 Est. Patient 20:28:47 HOME ENERGY AUDITOR Shubham Hinojosa [facility] CPT-68440 Level 3 Est. Patient 16:49:09 HOME ENERGY AUDITOR Lizzy STEEL [facility] CPT-81055 Level 3 Est. Patient 11:27:43 CDT Shubham Micaela [facility] Procedures Code Procedure Name Date Entry Date Standard Description CPT-96508 Chest 2V Frontal and Lat 10:32:56 CDT CPT-J0702 Celestone 6 mg (Betamethasone) 12:39:18 CDT CPT-JTINJ Asp/Joint Injection 12:39:18 CDT CPT-90817 Knee 3V 10:11:02 CDT CPT-82824 Venipuncture Draw Fee 10:11:01 CDT CPT-94415 Bone Density 09:07:36 CDT CPT-20628 Venipuncture Draw Fee 09:49:22 CDT CPT-27627 Prevnar 13 Intramuscular Suspension 10:17:38 HOME ENERGY AUDITOR 09/09 CPT-09947 Venipuncture Draw Fee 09:37:56 HOME ENERGY AUDITOR CPT-25565 Venipuncture Draw Fee 10:03:48 HOME ENERGY AUDITOR CPT-98049 Venipuncture Draw Fee 09:40:24 HOME ENERGY AUDITOR CPT-10910 Venipuncture Draw Fee 10:25:18 CDT CPT-87180 Venipuncture Draw Fee 10:16:45 CDT CPT-G0008 Administration of Influenza Virus Vaccine 10:13:06 CDT CPT-43187 Fluzone High-Dose Intramuscular Suspension 10:13:05 CDT CPT-12212 Venipuncture Draw Fee 13:08:44 CDT CPT-87339 Postop F/U Visit 15:36:07 CDT CPT-49311 Venipuncture Draw Fee 11:18:34 CDT CPT-10538 Postop F/U Visit 21:42:49 CDT CPT-24354 Postop F/U Visit 15:04:20 CDT CPT-39491 Postop F/U Visit 14:36:57 CDT CPT-73751 Postop F/U Visit 15:24:23 CDT CPT-79730 Venipuncture Draw Fee 10:29:37 CDT CPT-64505 Venipuncture Draw Fee 15:30:17 CDT CPT-22384 Spec Collection and Handling Fee 16:01:24 CDT CPT-OV Office Visit 16:00:46 CDT CPT-30752 Spec Collection and Handling Fee 07:53:10 CDT CPT-96801 Venipuncture Draw Fee 08:12:53 CDT CPT-47559 Venipuncture Draw Fee 08:25:51 CDT CPT-32978 Venipuncture Draw Fee 09:36:09 CDT CPT-63191 Venipuncture Draw Fee 10:36:43 CDT CPT-34525 Venipuncture Draw Fee 11:25:42 CDT CPT-61641 Venipuncture Draw Fee 14:36:07 HOME ENERGY AUDITOR CPT-51276 Venipuncture Draw Fee 16:14:57 HOME ENERGY AUDITOR CPT-12272 Venipuncture Draw Fee 08:30:02 HOME ENERGY AUDITOR CPT-74864 Venipuncture Draw Fee 09:01:27 HOME ENERGY AUDITOR CPT-53078 Venipuncture Draw Fee 10:26:48 HOME ENERGY AUDITOR CPT-96496 Venipuncture Draw Fee 09:17:00 HOME ENERGY AUDITOR CPT-30324 Administration single or combination vaccine inc oral 11 :27:03 CDT CPT-39277 Influenza High Dose age 65+ 11:27:03 CDT CPT-59599 Venipuncture Draw Fee 11:24:33 CDT CPT-00536 Venipuncture Draw Fee 10:55:37 CDT CPT-58069 Venipuncture Draw Fee 16:44:54 CDT CPT-21270 Venipuncture Draw Fee 15:51:17 CDT CPT-93004 Administration single or combination vaccine inc oral 09 :45:33 CDT CPT-12040 Zoster Vaccine (Zostavax) 09:45:33 CDT CPT-89271 Hemoccult x3 (Floor Use Only) 10:03:25 CDT CPT-21330 Venipuncture Draw Fee 08:53:08 CDT CPT-03757 EKG Trac and Interp 10:48:21 CDT CPT-70426 Hand comp min 3V 10:48:21 CDT CPT-71753 Chest 2V Frontal and Lat 10:48:21 CDT CPT-J0702 Celestone 6 mg (Betamethasone) 15:13:44 CDT CPT-J0702 Celestone 3 mg (Betamethasone) 15:13:44 CDT CPT-04650 Abx/Therapy Injection 15:13:44 CDT CPT-26207 Aspir/Inject Sm Joint 19:26:21 HOME ENERGY AUDITOR CPT-26226 Venipuncture Draw Fee 13:36:59 HOME ENERGY AUDITOR
--- NOTE | 2016-08-02 15:32 | Diagnostic Imaging Report ---
EXAMINATION: PET-CT. TECHNIQUE: Serum glucose level at the time of the study is: 133 mg/dL. 12.3 mCi of FDG was administered intravenously followed by obtaining PET images with corresponding noncontrast CT scan images. The CT scan was performed for anatomic correlation and attenuation correction and was not performed according to the diagnostic protocol of the areas covered. The scan was performed from the head to mid thighs. INDICATION: Right lower lobe lung mass. History of colon cancer diagnosed in 2014. FINDINGS: There is symmetric FDG uptake in the brain. There is an area of increased FDG uptake in the lateral aspect of the left frontal bone within the skull which has an associated increased SUV at the 12.4. This is superimposed over the skull and does not appear to be a misregistration artifact from the adjacent brain. No correlating obvious abnormality on the associated localizer CT scan. There is mild increased FDG uptake in the vocal cords without convincing mass identified, likely physiologic. In the right lower lobe, there is a lobulated lung nodule measuring 3 x 1.8 cm. It is compared to 3.3 x [address] scan loaded on our PACS from an outside facility dated 06/21/2016. The difference is potentially related to technique differences. On the PET portion of the study, there is level of FDG uptake below the liver at an SUV value of 1.7 in favor of a benign etiology. The abdomen and pelvis demonstrate increased expected activity in the urinary tract related to tracer excretion. There is bowel activity also noted. Mild activity in the liver possibly superimposed from the adjacent stomach is noted without definitive suspicious FDG uptake seen. IMPRESSION: 1. The right lower lobe pulmonary nodule demonstrates no definite associated hypermetabolism in favor of a benign etiology. Close follow-up with CT scan of the chest in 2-3 months is recommended. 2. There is a focal significant hypermetabolism which appears to localize to the left frontal bone in the skull without obvious corresponding change on the associated localizer CT scan. This is indeterminate and an occult marrow involvement with metastatic disease is not excluded. Further evaluation with bone scan and enhanced MRI of the head is recommended for better evaluation. Dictated by: Dictated on workstation # [id number]
== END ==
LOC: RAD 09:40
PROVIDERS: ATTEND Surgery
DX: R91.8 Other nonspecific abnormal finding of lung field (principal); Z03.89 Encounter for observation for other suspected diseases and conditions ruled out; Z85.038 Personal history of other malignant neoplasm of large intestine